=== PATIENT | female | born 1975 | race Caucasian/White ===

== ENCOUNTER 2020-10-11 07:36 | Emergency (ER) | payer OTHER ==
[~2020-10-11] VITALS: Ht 162.6 cm; Wt 95.2 kg
[2020-10-11] MEDS ORDERED: PANT40 PO (07:51)
[2020-10-11] MEDS ORDERED: ALBU90OI INH (07:52)
[2020-10-11] MEDS ORDERED: LORA10ER PO (07:52)
[2020-10-11] MEDS ORDERED: METF500 PO (07:52)
[2020-10-11] MEDS ORDERED: BASAGLAR K100 UNIT/8 SQ (07:52)
[2020-10-11] MEDS ORDERED: Prinivil10 MG PO (07:52)
[2020-10-11] MEDS ORDERED: Flonase 0.05% N16 GM (07:53)
[2020-10-11] MEDS ORDERED: CYCL10 PO (09:12)
[2020-10-11] MEDS ORDERED: Ultram50 MG PO (09:12)
== END 2020-10-11 09:15 | disposition home or self-care (01) ==
LOC: ER 07:36
DX: M25.511 Pain in right shoulder (principal); Z88.0 Allergy status to penicillin; Z88.1 Allergy status to other antibiotic agents; Z79.4 Long term (current) use of insulin; Z79.899 Other long term (current) drug therapy
CPT/HCPCS: 99283; A9270